=== PATIENT | male | born 1970 | race African-American/Black ===

== ENCOUNTER 2020-06-19 12:17 | Emergency (ER) | payer SELFPAY ==
[2020-06-19 12:31] VITALS: BP 139/85; PULSE 107; TEMP 98.5; BMI 31.1
[2020-06-19] MEDS ORDERED: IBUPROFEN 600 MG TABLET (FP) PO ONE ×2 (13:38→13:41)
== END 2020-06-19 14:59 | disposition home or self-care (01) ==
LOC: JERFT 12:17
DX: M79.671 Pain in right foot (principal)
CPT/HCPCS: 73630-TC-RT-FY; 99283-25